=== PATIENT | male | born 1985 | race Caucasian/White ===

== ENCOUNTER 2020-07-10 12:15 | Emergency (ER) | payer OTHER ==
[2020-07-10] MEDS ORDERED: Ibuprofen 400 MG Tab PO ONE (12:40)
--- NOTE | 2020-07-10 12:53 | EDM.PDOC ---
ED HPI GENERAL MEDICAL PROBLEM - General Chief Complaint: Fever Stated Complaint: FEVER, COUGH Time Seen by Provider: 07/10/20 12:40 Source of Information: Reports: Patient History Limitations: Reports: No Limitations - History of Present Illness INITIAL COMMENTS - FREE TEXT/NARRATIVE: 35 YO WM PRESENTS TO ER COMPLAINING OF FEVER, BODY ACHES, MILD NONPRODUCTIVE COUGH X 2 DAYS. PT REPORTS HE DROVE HOME FROM [place] ON SATURDAY AND WAS FEELING SORE AND FATIGUED BUT DIDN'T THINK MUCH ABOUT IT. PT REPORTS WAKING UP YESTERDAY WITH FEVER AND MALAISE. PT DENIES TAKING TEMP AT HOME BUT STATES HE FELT FEVERISH. PT DENIES CHEST PAIN/SHORTNESS OF BREATH. PT DENIES ANY KNOWN SICK CONTACTS OR COVID EXPOSURES. PT DENIES HISTORY OF OBESITY, HYPERGLYCEMIA OR RESPIRATORY DISEASE. PT DENIES TOBACCO USE. Onset Date: 07/08/20 Duration: Day(s): (2) Location: Reports: Generalized Quality: Reports: Ache Severity: Mild Improves with: Reports: Rest Worsens with: Reports: None Associated Symptoms: Reports: Cough, Fever/Chills, Headaches, Loss of Appetite. Denies: Chest Pain, cough w sputum, Nausea/Vomiting, Shortness of Breath, Weakness Treatments X R[employer] DEVELOPER: Reports: Acetaminophen Headache Pain Score (Numeric/FACES): 3 - Related Data Allergies Allergy/AdvReac Type Severity Reaction Status Date / Time No Known Drug Allergies Allergy Cannot Verified 07/10/20 12:45 Remember Home Meds: Home Meds Dextroamphetamine/Amphetamine [Adderall 10 mg Tablet] 10 mg PO TID 07/10/20 [History] FLUoxetine [PROzac] 20 mg PO DAILY 07/10/20 [History] Rosuvastatin [Crestor] 10 mg PO DAILY 07/10/20 [History] ED ROS GENERAL - Review of Systems Review Of Systems: See Below Constitutional: Reports: Fever, Chills, Malaise HEENT: Reports: Rhinitis Respiratory: Reports: Cough. Denies: Shortness of Breath Cardiovascular: Reports: No Symptoms Endocrine: Reports: No Symptoms GI/Abdominal: Reports: No Symptoms : Reports: No Symptoms Musculoskeletal: Reports: Muscle Pain Skin: Reports: No Symptoms Neurological: Reports: No Symptoms Psychiatric: Reports: No Symptoms Hematologic/Lymphatic: Reports: No Symptoms Immunologic: Reports: No Symptoms ED EXAM, GENERAL - Physical Exam Exam: See Below Exam Limited By: No Limitations General Appearance: Alert, WD/WN, No Apparent Distress Eye Exam: Bilateral Eye: PERRL Ears: Normal External Exam, Normal Canal, Hearing Grossly Normal, Normal TMs Nose: Normal Inspection, Normal Mucosa, No Blood, Clear Rhinorrhea Throat/Mouth: Normal Inspection, Normal Lips, Normal Teeth, Normal Gums, Normal Oropharynx, Normal Voice, No Airway Compromise Head: Atraumatic, Normocephalic Neck: Normal Inspection, Supple, Non-Tender, Full Range of Motion Respiratory/Chest: No Respiratory Distress, Lungs Clear, Normal Breath Sounds, No Accessory Muscle Use, Chest Non-Tender Cardiovascular: Normal Peripheral Pulses, Regular Rate, Rhythm, No Edema, No Gallop, No JVD, No Murmur, No Rub GI/Abdominal: Normal Bowel Sounds, Soft, Non-Tender, No Organomegaly, No Distention, No Abnormal Bruit, No Mass Back Exam: Normal Inspection, Full Range of Motion, NT Extremities: Normal Inspection, Normal Range of Motion, Non-Tender, Normal Capillary Refill, No Pedal Edema Neurological: Alert, Oriented, CN II-XII Intact, Normal Cognition, Normal Gait, Normal Reflexes, No Motor/Sensory Deficits Psychiatric: Normal Affect, Normal Mood Skin Exam: Warm, Dry, Intact, Normal Color, No Rash Lymphatic: No Adenopathy Course - Vital Signs Last Recorded V/S: Last Vital Signs Temp 36.8 C 07/10/20 12:45 Pulse 98 07/10/20 12:50 Resp 18 07/10/20 12:23 BP 122/87 07/10/20 12:23 Pulse Ox 97 07/10/20 12:23 - Orders/Labs/Meds Orders: Active Orders 24 hr Category Date Time Status CORONAVIRUS COVID-19 CARLA [MOLEC] Routine Lab 07/10/20 12:30 Ordered INFLUENZA A+B AG SCREEN [RM] Stat Lab 07/10/20 12:40 Received Isolation [COMM] Routine Oth 07/10/20 12:46 Ordered Meds: Medications Discontinued Medications Generic Name Dose Route Start Last Admin Trade Name Freq PRN Reason Stop Dose Admin Ibuprofen 800 mg 07/10/20 12:40 07/10/20 12:45 Motrin PO 07/10/20 12:41 800 mg ONETIME ONE Administration - Radiology Interpretation Free Text/Narrative:: INFLUENZA A AND B- NEGATIVE Departure - Departure Time of Disposition: 14:22 Disposition: Home, Self-Care 01 Condition: Good Clinical Impression: Viral upper respiratory illness - Discharge Information Instructions: Viral Respiratory Infection, [id number] Referrals: Nelda Donato MD [Primary Care Provider] - Forms: ED Department Discharge Additional Instructions: 1. DISCHARGE HOME 2. QUARANTINE UNTIL COVID TEST RESULTS ARE PROVIDED 3. ZINC LOZENGES 4. MOTRIN/TYLENOL FOR FEVER/BODY ACHES 5. PLENTY OF FLUIDS 6. FOLLOW UP WITH PCP FOR FURTHER EVALUATION AND TREATMENT 7. RETURN TO ER FOR WORSENING SYMPTOMS Sepsis Event Note (ED) - Evaluation Sepsis Screening Result: Possible Sepsis Risk - Focused Exam Vital Signs: Vital Signs Temp Temp Pulse Resp BP Pulse Ox 07/10/20 12:50 98 07/10/20 12:45 36.8 C 07/10/20 12:23 36.8 C 115 H 18 122/87 97 - My Orders Last 24 Hours: My Active Orders 07/10/20 12:30 CORONAVIRUS COVID-19 CARLA [MOLEC] Routine 07/10/20 12:40 INFLUENZA A+B AG SCREEN [RM] Stat 07/10/20 12:46 Isolation [COMM] Routine - Assessment/Plan Last 24 Hours: My Active Orders 07/10/20 12:30 CORONAVIRUS COVID-19 CARLA [MOLEC] Routine 07/10/20 12:40 INFLUENZA A+B AG SCREEN [RM] Stat 07/10/20 12:46 Isolation [COMM] Routine Assessment:: 1. VIRAL ILLNESS Plan: 1. DISCHARGE HOME 2. QUARANTINE UNTIL COVID TEST RESULTS ARE PROVIDED 3. ZINC LOZENGES 4. MOTRIN/TYLENOL FOR FEVER/BODY ACHES 5. PLENTY OF FLUIDS 6. FOLLOW UP WITH PCP FOR FURTHER EVALUATION AND TREATMENT 7. RETURN TO ER FOR WORSENING SYMPTOMS
== END 2020-07-10 14:36 | disposition home or self-care (01) ==
LOC: KA.ED 12:15
DX: J06.9 Acute upper respiratory infection, unspecified (principal); Z20.828 Contact with and (suspected) exposure to other viral communicable diseases
CPT/HCPCS: 87804; 99283; A9270; 99282; U0002